=== PATIENT | female | born 2000 | race Caucasian/White ===

== ENCOUNTER 2021-11-01 10:38 | Emergency (ER) | payer OTHER, SELFPAY ==
[2021-11-01 10:44] VITALS: BP 140/65; PULSE 93; RESP 16; TEMP 37.1; O2SAT 100
--- NOTE | 2021-11-01 11:36 | ED.HA ---
HPI - Headache General Chief Complaint: Headache Stated Complaint: migraine Time Seen by Provider: 11/01/21 11:13 Source: patient and RN notes reviewed Mode of arrival: ambulatory Limitations: no limitations History of Present Illness HPI Narrative: Patient presents today requesting a prescription for abortive medication for her severe headaches. She has had a few headaches in the last couple of weeks and is waiting to be evaluated by a neurologist when she gets new insurance in January. She has not been formally diagnosed with migraines. She has been prescribed Fioricet in the past that was not helpful. She woke up with a headache this morning but after ibuprofen her pain is now down to a 2/10. At times she does have nausea and photophobia, but none currently. She is also requesting a note for University because at times she needs to leave due to her severe headaches. MD elicited complaint: migraine Related Data Allergies Allergy/AdvReac Type Severity Reaction Status Date / Time No Known Allergies Allergy Verified 11/01/21 10:52 Review of Systems Review of Systems: CONSTITUTIONAL: Denies body aches, fever, chills, or sweats. EYES: Denies visual changes, redness, or discharge. ENT: Denies rhinorrhea, congestion, sore throat, or otalgia. CARDIOVASCULAR: Denies chest pain, palpitations, or edema. RESPIRATORY: Denies cough or dyspnea. GASTROINTESTINAL: Denies abdominal pain, nausea, vomiting, or diarrhea. GENITOURINARY: Denies dysuria or hematuria. SKIN: Denies rash, itching, or wounds. MUSCULOSKELETAL: Denies back pain, joint pain, or myalgia. NEUROLOGIC: Denies numbness, tingling, or weakness.+ Headache PSYCH: Denies depression or anxiety. [facility], [facility] Past Medical History Medical History Anorexia nervosa with bulimia Depression Ear problem Gastroenteritis Gastroesophageal reflux disease Viral upper respiratory illness Family History Family History Mother Multiple sclerosis Endometriosis Arthritis, rheumatoid Social History Social History Smoking status: Never smoker Alcohol intake: never Substance use type: marijuana Comments At time of signature, I have reviewed and agree with nursing past medical, surgical, social and family history unless otherwise noted. Please see nursing chart for further information. There is no relevant family history pertinent to the presenting complaint Exam Narrative: GENERAL: Well-appearing, well-nourished, and in no acute distress. HEAD: Normocephalic, atraumatic. EYES: EOMI. PERRL. No redness or drainage. Conjunctivae normal. ENT: Mucous membranes pink and moist. NECK: Normal AROM. Supple. No lymphadenopathy. CHEST: No respiratory distress. Clear to auscultation. HEART: Regular rate and rhythm. No murmur appreciated. Normal peripheral pulses. EXTREMITIES: Normal range of motion. No edema. SKIN: Warm, dry, no rash. Capillary refill normal. Normal skin turgor. NEURO: No focal deficits. Alert and oriented x3. Gait steady. PSYCH: Normal affect. No signs of depression or anxiety. Course Course Level of Care: Express Care Visit Vital Signs Vital signs: Vital Signs Temperature 98.8 F 11/01/21 10:44 Pulse Rate 93 11/01/21 10:44 Respiratory Rate 16 11/01/21 10:44 Blood Pressure 140/65 11/01/21 10:44 Pulse Oximetry 100 11/01/21 10:44 Temperature 98.8 F 11/01/21 10:44 Pulse Rate 93 11/01/21 10:44 Respiratory Rate 16 11/01/21 10:44 Blood Pressure 140/65 11/01/21 10:44 Pulse Oximetry 100 11/01/21 10:44 Reviewed. Pt has been instructed to follow up with her PCP regarding her elevated blood pressure today. MDM - Headache Differential Diagnosis Differential diagnosis: Likely migraine, tension headache, headache and other (Cluster headache) Critical Care
== END 2021-11-01 11:48 | disposition home or self-care (01) ==
PROVIDERS: Emergency Provider Nurse Practitioner
DX: R51.9 Headache, unspecified (principal); K21.9 Gastro-esophageal reflux disease without esophagitis
CPT/HCPCS: 99213; G0463

== ENCOUNTER 2022-06-03 19:24 | Emergency (ER) | payer OTHER, SELFPAY ==
[2022-06-03 19:27] VITALS: BP 116/85; PULSE 88; RESP 26; O2SAT 96
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
[2022-06-03] MEDS: LORazepam INJ (*CRX) 2 MG/ML VIAL 1 MG IV PUSH (20:07)
[2022-06-03 21:10] VITALS: BP 123/74; PULSE 78; RESP 18; O2SAT 100
== END 2022-06-03 21:11 | disposition home or self-care (01) ==
PROVIDERS: Emergency Provider Emergency Medicine; PCP Family Medicine
DX: F41.9 Anxiety disorder, unspecified (principal); T23.221A Burn of second degree of single right finger (nail) except thumb, initial encounter; X00.0XXA Exposure to flames in uncontrolled fire in building or structure, initial encounter
CPT/HCPCS: 96374; 99284; J2060

== ENCOUNTER 2022-07-06 02:26 | Day surgery (SDC) | payer OTHER, SELFPAY ==
[2022-07-01 10:58] VITALS: BMI 31.2
--- NOTE | 2022-07-01 11:22 | PC.NURSE ---
Report to the Outpatient Waiting Room, entrance under the green pavilion located off [facility], at time __8:00AM on date __07/06/22 . Planned Procedure Time: __10:00AM . Time changes happen often and if your time is changed the preop area will call you the afternoon before. - You and your visitor will be asked to self-screen and do not enter if you have any COVID symptoms. - We encourage only one visitor and NO visitors under age 16 are allowed at this time. Your visitor will receive communication by the phone number that is given day of service. - The patient visitor is requested to social distance or may leave the building when not with patient due to restrictions. - A mask is required within the hospital. Patients may have clear liquids (water, carbonated beverages, clear teas, apple juice) until 3 hours prior to surgery with a maximum of 20 ounces. - No food from midnight until time of surgery Take the following medications with a SIP of water the morning of surgery: __LORAZEPAM NEEDED Medications to discontinue per physician NONE Date to take last dose Please no make-up, nail japanese, hairspray, perfume, deodorant, or body powder the day of surgery. No jewelry (including any body piercings) or valuables the day of surgery, leave them at home. Please take a shower or bath the night before, or the morning of, surgery with an antibacterial soap. Wear comfortable, loose fitting clothing. Children are encouraged to wear pajamas. - Jewelry must be removed prior to entering the operating room. Rings and piercings that are not removed may be cut off. - The hospital will not accept responsibility for valuables. - Please leave all valuables, including medications, at home the day of surgery. If you are going home after surgery, a licensed school bus driver/mechanic must drive you home. - NO public transportation without another adult. - We recommend that an adult stay with you for 24 hours following discharge. - We also recommend that you do not drive, make important decision, drink alcoholic beverages, or take any drugs that were not prescribed by your health care provider for at least 24 hours after your discharge time. Follow any additional instructions given to you from your surgeon. If you or anyone in your household have experienced Covid symptoms in the past week, please notify your surgeon or the nurse liaison at the phone number below for possible testing. Telephone instructions given to __PATIENT and asked if any additional questions and then verbalized understanding. Patient advised to call surgeon office or pre surgery nurse liaison [phone] if any additional questions.
--- NOTE | 2022-07-05 08:14 | PM.IMHP ---
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 She has an IUD in place for the last 5 years; unsure if it's kyleena or mirena but is wanting it removed. She and her do not want children; she wants to proceed with bilateral salpingectomy. She does not have cycles with her IUD, but feels like she can sometimes feel the IUD when she exercises/has sex. Review of Systems Review of Systems: All systems reviewed & are unremarkable except as noted in HPI and below PMFSH Past Medical History Medical History Anorexia nervosa with bulimia Depression Ear problem Encounter for screening examination for sexually transmitted disease Gastroenteritis Gastroesophageal reflux disease Insomnia Obesity Viral upper respiratory illness Surgical History Surgical History History of gynecological procedure (~2016) iud insertion pt unsure which she has Family History Family History Mother Multiple sclerosis Endometriosis Arthritis, rheumatoid Mother Patient's mother is in good health Family history of malignant neoplasm of cervix, Onset Age: 20 Depression Father Patient's father is in good health Depression Sibling Patient's sister is in good health Family history of mental disorder, Onset Age: 15 Social History Social History Smoking status: Never smoker Second hand tobacco smoke exposure: No Alcohol intake: current Drinks per week: 2 Alcohol use details: social 1-3 month Substance use: never Substance use type: does not use and marijuana Other substance usage details: prn for migraines Additional living arrangements comments: SPOUSE Gender identity (if verbalized by the patient): Female Sexual Orientation (if Verbalized by the Patient): Bisexual Spiritual care concerns: No Meds Home Medications and Allergies Home Medications Medication Instructions Recorded Confirmed Type trazodone 50 mg tablet 50 mg PO QHS PRN sleep #30 tabs 01/26/22 07/01/22 Rx lorazepam 1 mg tablet (Ativan) 0.5 mg PO DAILY PRN anxiety #14 06/05/22 07/01/22 Rx tabs Allergies Allergy/AdvReac Type Severity Reaction Status Date / Time No Known Allergies Allergy Verified 07/01/22 10:55 Exam Const: General: cooperative, comfortable, no acute distress and obese Resp: Effort & Inspection: normal respiratory effort Cardio: Rate: regular rate GI: Inspection: normal to inspection GI Palp: No abdominal tenderness and Yes Soft to palpation : Other: deferred to OR Skin: General skin exam: normal color Neuro: General: patient oriented x3 Extrem: General: normal to inspection Psych: Appearance: grossly normal Affect: normal affect Attitude: cooperative Assessment and Plan Assessment and plan (1) Request for sterilization: Code(s): Z30.2 - Encounter for sterilization Status: Acute (2) IUD (intrauterine device) in place: Code(s): Z97.5 - Presence of (intrauterine) contraceptive device Status: Acute Plan - Risks and benefits of sterilization have been discussed as well as other type of BC including vasectomy; she is aware that this is permanent sterilization and the only way to conceive would be through IVF technology (which can cost $20k+/cycle); pt also aware of the increased risk of regret as she is <30yo. - she desires to proceed with laparoscopic bilateral salpingectomy and IUD removal
[2022-07-06] VITALS (10 sets, daily range): BP systolic 103–143; BP diastolic 51–89; PULSE 59–132; RESP 14–22; TEMP 36.1–36.6; O2SAT 99–100
--- NOTE | 2022-07-06 06:55 | WPDHPUPDATE1 ---
History and Physical Update Update Date/Time: 07/06/22 06:55 History and Physical has been reviewed, including an updated exam of the patient. There are NO changes in the patient's condition. Risks, benefits, and alternatives have been discussed and questions answered. Patient agrees to proceed with procedure.
--- NOTE | 2022-07-06 09:05 | WPDANESEPPF ---
Anes - Initial Pre Proc Eval Procedure: Operation Date: 07/06/22 10:00 Proposed Procedures p Laparoscopic Bilateral Salpingectomy, Hysteroscopy, Intrauterine Device Removal - Yany Machado MD Date/Time: 07/06/22 09:05 Surgeon: Yany Machado MD Pre Op Diagnosis: desired sterilization Patient Data Age: 22 Gender: F Height: 1.55 m Weight: 75 kg Last Vital Signs Temp 36.6 C 07/06/22 08:14 Pulse 59 L 07/06/22 08:14 Resp 16 07/06/22 08:14 BP 125/51 L 07/06/22 08:14 Pulse Ox 100 07/06/22 08:14 O2 Del Method Room Air 07/06/22 08:14 Allergies Allergy/AdvReac Type Severity Reaction Status Date / Time No Known Allergies Allergy Verified 07/06/22 08:59 Home Medications Medication Instructions Recorded Confirmed Type trazodone 50 mg tablet 50 mg PO QHS PRN sleep #30 tabs 01/26/22 07/01/22 Rx lorazepam 1 mg tablet (Ativan) 0.5 mg PO DAILY PRN anxiety #14 06/05/22 07/01/22 Rx tabs Patient hx anesthesia problems: other (motion sickness) Family hx anesthesia problems: none Results Review: All pre-operative results and documents have been reviewed as part of the pre-operative evaluation. [facility] Past Medical History Medical History Anorexia nervosa with bulimia Depression Ear problem Encounter for screening examination for sexually transmitted disease Gastroenteritis Gastroesophageal reflux disease Insomnia Obesity Viral upper respiratory illness Surgical History Surgical History History of gynecological procedure (~2017) iud insertion pt unsure which she has Family History Family History Mother Multiple sclerosis Endometriosis Arthritis, rheumatoid Mother Patient's mother is in good health Family history of malignant neoplasm of cervix, Onset Age: 20 Depression Father Patient's father is in good health Depression Sibling Patient's sister is in good health Family history of mental disorder, Onset Age: 15 Social History Social History Smoking status: Never smoker Second hand tobacco smoke exposure: No Alcohol intake: current Drinks per week: 2 Alcohol use details: social 1-3 month Substance use: never Substance use type: does not use and marijuana Other substance usage details: prn for migraines Living arrangements: with family Additional living arrangements comments: SPOUSE Gender identity (if verbalized by the patient): Female Sexual Orientation (if Verbalized by the Patient): Bisexual Spiritual care concerns: No Anes - Eval Final PreProcedure Day of Procedure 07/06/22 09:05 Patient weight: obese Heart: regular rate and rhythm Lungs: clear to auscultation Neurological: alert and oriented Last oral intake: >/= 8 hours ASA classification: III Emergent: no Anesthetic plan: proceed Anesthesia type and monitoring: general ETT and standard monitoring Results Review: All pre-operative results and documents have been reviewed as part of the pre-operative evaluation. Informed Consent: The patient's anesthetic plan and its attendant risks and benefits were discussed with the patient/family/POA. Questions were solicited and answers provided to the satisfaction of the patient/family/POA.
[2022-07-06] MEDS: ACETAMINOPHEN 500 MG TABLET 1000 MG PO (09:20)
[2022-07-06] MEDS: KETOROLAC 15 MG/ML VIAL (*BKC) IV PUSH (09:21)
[2022-07-06] MEDS: SCOPOLAMINE 1.5 MG PATCH TRANSDERM (09:28)
[2022-07-06] MEDS: LACTATED RINGERS 1,000 ML 30 ML IV CONT ×2 (09:32→11:26)
[2022-07-06] MEDS: LIDOCAINE HCL 1% PF 30 ML VIAL 20 ML INFILTRATE (10:18)
--- NOTE | 2022-07-06 11:15 | P.OP_ITS ---
Procedure Note - Detailed Date of Procedure 07/06/22 Pre-op Diagnosis desired sterilization Post-op Diagnosis Same Procedure Performed Laparoscopic bilateral salpingectomy and IUD removal Surgeon Yany Machado MD Inspector Balance Truing Lesia Anesthesia General Findings IUD strings visualized and IUD removed w/o issue. Uterus sounded to 8cm; normal cervix. Normal uterus, tubes and ovaries. Good hemostasis at end of case. Description of Procedure Antony was taken to the operating room where she was placed under general endotracheal anesthesia without complications. She was then prepped and draped in the usual sterile fashion in the dorsal lithotomy position with her legs in low Tee stirrups and her arms tucked at her side with a strap over her chest. A time-out was performed and no preoperative antibiotics were indicated. My attention was turned down below where her bladder was drained via straight catheterization. A bivalve speculum was then placed within the vagina where the cervix was easily identified. The IUD strings were visualized and grasped with a ring forcep and the IUD was easily removed in whole and discarded. The anterior lip of the cervix was grasped with a single-tooth tenaculum, the uterus was sounded, the cervix was dilated, and a diagnostic uterine manipulator was placed without complications. My gloves were changed and my attention was turned to her abdomen. An infraumbilical incision was made, and a 5 mm trocar was placed under direct visualization without complications. Once intra-abdominal placement was confirmed the abdomen was insufflated with carbon dioxide gas. She was then placed in Trendelenburg and two additional 5 mm ports were placed in the left and right lower quadrants under direct visualization without complications. The above findings were noted. The right fallopian tube was then elevated and the mesosalpinx was serially clamped, coagulated, transected using the LigaSure device until the proximal end of the fallopian tube was reached. The proximal end of the fallopian tube was cross clamped, coagulated and transected. The tube was then removed from the abdomen. The same procedure was then performed on the left side without any complications. Good hemostasis was noted. All instruments were removed from the abdomen. The insufflation was released and the trocars were removed. The 3 laparoscopic incision sites were reapproximated using 4-0 Monocryl and covered with Dermabond. The incisions were then infiltrated using 1% Lidocaine. The uterine manipulator was removed. Sponge, lap, instrument, and needle counts were correct at the end of the procedure. Patient was awoken from general anesthesia and taken to recovery with plans of same-day discharge home. Estimated Blood Loss 5 IV Fluids 1,000 Urine Output 400 Pathology Yes (left and right fallopian tubes) Complications No immediate complications Condition Stable Disposition Same day [facility] Billing Surgery - Charge Forward: Surgery Billing
[2022-07-06] MEDS: ONDANSETRON INJ 4 MG/2 ML VIAL IV PUSH (13:41)
== END 2022-07-06 14:00 | disposition home or self-care (01) ==
PROVIDERS: PCP Family Medicine; Visit Provider Obstetrics & Gynecology
PROC: 0UDB8ZZ Extraction of Endometrium, Via Natural or Artificial Opening Endoscopic (ICD-10-PCS; CPT 58558; principal; 2022-07-06 10:00)
DX: Z30.2 Encounter for sterilization (principal); Z30.432 Encounter for removal of intrauterine contraceptive device; F32.A Depression, unspecified; E66.9 Obesity, unspecified; Z68.31 Body mass index [BMI] 31.0-31.9, adult
CPT/HCPCS: 58661; 58301; 88302; A9270; J1100; J1200; J1885; J2250; J2405; J2704; J3010; J7030; J7120

== ENCOUNTER 2023-01-12 22:50 | Emergency (ER) | payer OTHER, SELFPAY ==
[2023-01-13 14:16] LABS: Hematocrit 39.1 % (35.0-49.0); Hemoglobin 13.3 g/dL (12.0-15.0); Mean Corpuscular Hemoglobin 30.3 pg (27.0-31.0); Mean Corpuscular Volume 89.1 fL (78.0-102.0); Mean Platelet Volume 9.8 fl (9.2-11.8); Nucleated Red Blood Cells Perc 57.6 % (0-0.0); Platelet Count Result 357 K/mm3 (150-420); Red Blood Count 4.39 M/mm3 (4.20-5.40); White Blood Count 13.2 K/mm3 (4.8-10.8)
[2023-01-13 14:17] LABS: Basophils Absolute Auto 0.05 K/mm3 (0.00-0.10); Basophils Percent Auto 0.4 % (0.0-1.0); Eosinophils Absolute Auto 0.14 K/mm3 (0.02-0.50); Eosinophils Percent Auto 1.1 % (1.0-6.0); Immature Granulocyte Absolute 0.05 K/mm3 (0.00-0.00); Immature Granulocyte Percent A 0.4 % (0.0-0.0); Lymphocytes Absolute Auto 4.55 K/mm3 (1.10-4.50); Lymphocytes Percent Auto 34.4 % (18.0-42.0); Monocytes Percent Auto 6.1 % (2.0-11.0); Neutrophils Absolute Auto 7.6 K/mm3 (1.7-7.2)
[2023-01-13 14:18] LABS: Anion Gap 13 mmol/L (8-16); Aspartate Amino Transferase 56 U/L (15-37); Bilirubin,Total 0.3 mg/dL (0.00-1.00); Blood Urea Nitrogen 14 mg/dL (7-18); Calcium 8.9 mg/dL (8.5-10.1); Carbon Dioxide 27 mmol/L (21-32); Chloride 102 mmol/L (98-108); Estimated Glomerular Filt Rate > 60; Glucose 98 mg/dL (70-99); Osmolality Calculated 294 mOsm/kg (285-295); Potassium 3.5 mmol/L (3.5-5.1); Sodium 142 mmol/L (136-145)
[2023-01-13 14:19] LABS: Alanine Aminotransferase 56 U/L (14-59); Albumin Level 4.3 g/dL (3.4-5.0); Alkaline Phosphatase 76 U/L (46-116); Ethanol 5 mg/dL (0-6); Lipase 35 U/L (16-77); SPREG INTERNAL CONTROL Positive; Serum Qual hCG Negative; Total Protein 8.1 g/dL (6.4-8.2)
== END 2023-01-13 00:50 | disposition home or self-care (01) ==
PROVIDERS: Emergency Provider Emergency Medicine; PCP Family Medicine
DX: R11.2 Nausea with vomiting, unspecified (principal); E86.0 Dehydration; F17.210 Nicotine dependence, cigarettes, uncomplicated; Z79.899 Other long term (current) drug therapy
CPT/HCPCS: 36415; 80053; 80307; 83690; 84703; 85025; 96361; 96374; 99284; A9270; J2405; J7030

== ENCOUNTER 2023-02-05 20:15 | Emergency (ER) | payer OTHER, SELFPAY ==
--- NOTE | ~2023-02-05 | XR_ITS ---
EXAMINATION: XR finger 5th LT min 2V DATE: 02/05/2023 21:09 INDICATION: Crush injury to the left fifth digit TECHNIQUE: Dorsal palmar, lateral and 2 oblique views of the left fifth digit were obtained COMPARISON: None FINDINGS: Nondisplaced transverse fracture extending across the tip of the tuft of the left fifth distal phalan x. There is minimal amount of gas underlying the proximal nailbed which would typically be considered to render this equivalent of an open/compound fracture. No other fractures identified. Joint spaces are normal. IMPRESSION: 1. Nondisplaced fracture at the tip of the tuft of the left fifth distal phalanx with suggestion of a ssociated nailbed injury which would render this equivalent of an open/compound fracture at increased risk of infection. Reviewed, dictated and finalized at location A. IMPRESSION: 1. Nondisplaced fracture at the tip of the tuft of the left fifth distal phalan x with suggestion of associated nailbed injury which would render this equivale nt of an open/compound fracture at increased risk of infection.
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
[2023-02-05 20:22] VITALS: BP 106/49; PULSE 98; RESP 20; TEMP 36.7; O2SAT 98
[2023-02-05] MEDS: TETANUS,DIPHTHERIA,AC PERTUSSIS ADULT 0.5 ML (ADACEL) IM (20:33)
[2023-02-05] MEDS: NEOMYCIN/POLYMYXIN/BACITRACIN OINTMENT PACKET 1 PACKET TOPICAL (20:34)
[2023-02-05] MEDS: LIDOCAINE HCL 1% LOCAL INJ 10 ML VIAL INFILTRATE (20:34)
[2023-02-05 20:40] VITALS: BP 110/72; PULSE 77; RESP 20
[2023-02-05] MEDS: ONDANSETRON HCL ODT 4 MG TABLET PO (20:56)
[2023-02-05 21:24] VITALS: BP 112/72; PULSE 72; RESP 20; TEMP 36.6; O2SAT 96
== END 2023-02-05 21:25 | disposition home or self-care (01) ==
PROVIDERS: Emergency Provider Emergency Medicine; PCP Family Medicine
DX: S62.637B Displaced fracture of distal phalanx of left little finger, initial encounter for open fracture (principal); Z23 Encounter for immunization; W23.0XXA Caught, crushed, jammed, or pinched between moving objects, initial encounter
CPT/HCPCS: 12001; 29130; 73140; 90471; 90715; 99284; A9270